=== PATIENT | female | born 1965 | race Caucasian/White ===

== ENCOUNTER 2020-07-16 07:45 | Day surgery (SDC) | payer OTHER | END 2020-07-16 12:30 | disposition home or self-care (01) | LOC: AMB-ENDOS 07:45 | PROVIDERS: ATTEND Colon & Rectal Surgery | DX: K57.32 Diverticulitis of large intestine without perforation or abscess without bleeding (principal); K64.1 Second degree hemorrhoids; Z20.822 Contact with and (suspected) exposure to COVID-19 ==

== ENCOUNTER 2022-06-01 13:17 | Emergency (ER) | payer OTHER ==
[~2022-06-01] VITALS: Ht 162.6 cm; Wt 68.9 kg
[2022-06-01] MEDS ORDERED: KETO10TA2 PO (13:30)
[2022-06-01] MEDS ORDERED: CLONAZEPAM1 MG PO (13:32)
[2022-06-01] MEDS ORDERED: SYNTHROID50 MCG PO (13:33)
[2022-06-01] MEDS ORDERED: SIMVASTATIN40 MG PO (13:33)
[2022-06-01] MEDS ORDERED: DICY20TA PO (13:33)
[2022-06-01] MEDS ORDERED: FENOFIBRATE150 MG PO (13:34)
[2022-06-01] MEDS ORDERED: PROMETHAZINE HC25 M1 RC (13:34)
[2022-06-01] MEDS ORDERED: PRILOSEC OTC20 MG PO (13:34)
[2022-06-01] MEDS ORDERED: SINGULAIR10 MG PO (13:35)
[2022-06-01] MEDS ORDERED: ESTRACE1 MG PO (13:35)
[2022-06-01] MEDS ORDERED: MIRALAX510 GM PO (17:52)
== END 2022-06-01 17:59 | disposition home or self-care (01) ==
LOC: ER 13:17
DX: R10.9 Unspecified abdominal pain (principal); E03.9 Hypothyroidism, unspecified; E78.00 Pure hypercholesterolemia, unspecified; F32.89 Other specified depressive episodes; K59.00 Constipation, unspecified; K76.0 Fatty (change of) liver, not elsewhere classified; K57.30 Diverticulosis of large intestine without perforation or abscess without bleeding

== ENCOUNTER 2022-06-12 08:35 | Emergency (ER) | payer OTHER ==
[~2022-06-12] VITALS: Ht 162.6 cm; Wt 68.9 kg
[~2022-06-12 08:35] MED LIST: CLONAZEPAM1 MG PO; DICY20TA PO; ESTRACE1 MG PO; FENOFIBRATE150 MG PO; KETO10TA2 PO; MIRALAX510 GM PO; PRILOSEC OTC20 MG PO; PROMETHAZINE HC25 M1 RC; SIMVASTATIN40 MG PO; SINGULAIR10 MG PO; SYNTHROID50 MCG PO
[2022-06-12] MEDS ORDERED: METRONIDAZOLE500 MG PO (12:57)
[2022-06-12] MEDS ORDERED: OMEPRAZOLE40 MG PO (12:57)
[2022-06-12] MEDS ORDERED: LEVSIN/SL0.125 MG SL (12:57)
[2022-06-12] MEDS ORDERED: CIPRO500 MG PO (12:57)
== END 2022-06-12 16:06 | disposition home or self-care (01) ==
LOC: ER 08:35
DX: K57.32 Diverticulitis of large intestine without perforation or abscess without bleeding (principal); R10.10 Upper abdominal pain, unspecified

== ENCOUNTER 2022-08-19 10:38 | Emergency (ER) | payer OTHER ==
[~2022-08-19] VITALS: Ht 162.6 cm; Wt 70.3 kg
[~2022-08-19 10:38] MED LIST changes: +CIPRO500 MG PO; +LEVSIN/SL0.125 MG SL; +METRONIDAZOLE500 MG PO; +OMEPRAZOLE40 MG PO
== END 2022-08-19 19:23 | disposition home or self-care (01) ==
LOC: ER 10:38
DX: R10.13 Epigastric pain (principal); I10 Essential (primary) hypertension; K57.92 Diverticulitis of intestine, part unspecified, without perforation or abscess without bleeding; J45.909 Unspecified asthma, uncomplicated; K29.70 Gastritis, unspecified, without bleeding

== ENCOUNTER 2022-10-15 09:59 | Emergency (ER) | payer OTHER ==
[~2022-10-15] VITALS: Ht 162.6 cm; Wt 68.9 kg
== END 2022-10-15 12:13 | disposition home or self-care (01) ==
LOC: ER 09:59
DX: J06.9 Acute upper respiratory infection, unspecified (principal)
CPT/HCPCS: 96372; 99284; J0696